=== PATIENT | female | born 1970 | race Caucasian/White ===

== ENCOUNTER 2020-05-21 15:54 | Emergency (ER) | payer MEDICARE, MEDICAID ==
--- NOTE | 2020-05-21 16:44 | EDM.PDOC ---
ED HPI GENERAL MEDICAL PROBLEM - General Chief Complaint: General Stated Complaint: DEHYDRATION, CANCER PATIENT Time Seen by Provider: 05/21/20 16:19 Source of Information: Reports: Patient History Limitations: Reports: No Limitations - History of Present Illness INITIAL COMMENTS - FREE TEXT/NARRATIVE: Pt has multiorgan cancer and is followed in [facility] by several medical team members including oncologists. Seen usually once a week. She presents here mainly for concern of possibly being dehydrated. States she has not been drinking as much fluid as normal as of late and is feeling thirsty but has discomfort with swallowing and eating. Thinks she has lost 7 or 8 lbs since last week. Denies fevers,cough,chest pains or dyspnea. Primary reason for visit here is to check on her hydration status due to her feeling so thirsty. Onset: Gradual Improves with: Reports: Rest Worsens with: Reports: Movement Associated Symptoms: Reports: Loss of Appetite, Malaise, Weakness. Denies: Chest Pain, Cough, Fever/Chills, Headaches, Shortness of Breath - Related Data Allergies Allergy/AdvReac Type Severity Reaction Status Date / Time vancomycin Allergy Hives Verified 05/21/20 16:22 Home Meds: Home Meds Anastrozole [Arimidex] 1 mg PO DAILY 05/21/20 [History] Apixaban [Eliquis] 5 mg PO BID 05/21/20 [History] Cetirizine [ZyrTEC] 10 mg PO DAILY 05/21/20 [History] Cholecalciferol (Vitamin D3) [D3 Dots] 50 mcg PO DAILY 05/21/20 [History] Cyclobenzaprine HCl 10 mg PO DAILY 05/21/20 [History] Diphenhyd/Lidocaine/Nystatin [First-Bxn Mouthwash] 237 ml MM TID PRN 05/21/20 [History] FLUoxetine HCl [Fluoxetine HCl] 80 mg PO DAILY 05/21/20 [History] Gabapentin [Neurontin] 200 mg PO DAILY 05/21/20 [History] LORazepam [Lorazepam] 2 mg PO DAILY 05/21/20 [History] Levothyroxine Sodium [Euthyrox] 50 mcg PO DAILY 05/21/20 [History] Mirtazapine 7.5 mg pe PO DAILY 05/21/20 [History] OLANZapine [ZyPREXA] 10 mg PO DAILY 09/15/20 [History] Omeprazole 20 mg PO DAILY 05/21/20 [History] Oxybutynin [Oxybutynin ER] 10 mg PO DAILY 05/21/20 [History] Prazosin HCl [Prazosin] 3 mg PO DAILY 05/21/20 [History] Prochlorperazine Maleate [Compazine] 10 mg PO Q12HR PRN 05/21/20 [History] amLODIPine [Norvasc] 5 mg PO DAILY 05/21/20 [History] buPROPion HCL [Wellbutrin Xl] 150 mg PO DAILY 05/21/20 [History] hydrOXYzine HCL [Hydroxyzine HCl] 100 mg PO DAILY 05/21/20 [History] Social & Family History - Tobacco Use Smoking Status *Q: Never Smoker Second Hand Smoke Exposure: No - Caffeine Use Caffeine Use: Reports: None - Recreational Drug Use Recreational Drug Use: No ED ROS GENERAL - Review of Systems Review Of Systems: See Below Constitutional: Reports: Malaise, Weakness, Decreased Appetite, Weight Loss. Denies: Night Sweats, Diaphoresis HEENT: Reports: No Symptoms Respiratory: Denies: Shortness of Breath, Wheezing, Pleuritic Chest Pain Cardiovascular: Denies: Chest Pain, Blood Pressure Problem Endocrine: Reports: Fatigue GI/Abdominal: Denies: Abdominal Pain, Constipation, Diarrhea : Denies: Dysuria, Frequency Skin: Reports: No Symptoms Neurological: Reports: No Symptoms Psychiatric: Reports: Depression ED EXAM, GENERAL - Physical Exam Exam: See Below Exam Limited By: No Limitations General Appearance: Alert, WD/WN, No Apparent Distress Ears: Normal External Exam, Normal Canal, Hearing Grossly Normal, Normal TMs Nose: Normal Inspection, Normal Mucosa, No Blood Throat/Mouth: Normal Inspection, Normal Lips, Normal Teeth, Normal Gums, Normal Oropharynx, Normal Voice, No Airway Compromise Head: Atraumatic, Normocephalic Neck: Normal Inspection, Supple, Non-Tender, Full Range of Motion Respiratory/Chest: No Respiratory Distress, Lungs Clear, Normal Breath Sounds Cardiovascular: Normal Peripheral Pulses, Regular Rate, Rhythm, No Edema GI/Abdominal: Normal Bowel Sounds, Other (colostomy). No: Non-Tender, Distended Course - Vital Signs Last Recorded V/S: Last Vital Signs Temp 97 F 05/21/20 16:22 Pulse 93 05/21/20 16:22 Resp 18 05/21/20 16:22 BP 139/91 H 05/21/20 16:22 Pulse Ox 94 L 05/21/20 16:22 - Orders/Labs/Meds Orders: Active Orders 24 hr Category Date Time Status COMPREHENSIVE METABOLIC PN,CMP [CHEM] Stat Lab 05/21/20 16:36 Ordered Sodium Chloride 0.9% [Normal Saline] 1,000 ml Med 05/21/20 16:45 Active IV ASDIRECTED Medication Orders Sodium Chloride (Normal Saline) 1,000 mls @ 999 mls/hr IV ASDIRECTED SALENA Last Admin: 05/21/20 17:09 Dose: 999 mls/hr Documented by: MATT Labs: Laboratory Tests 05/21/20 05/21/20 Range/Units 16:36 16:37 WBC 9.0 D (4.0-11.0) K/uL RBC 5.44 (3.80-5.80) M/uL Hgb 13.9 (11.5-16.5) g/dL Hct 42.8 D (37.0-47.0) % MCV 79 (76-96) fL MCH 25.6 L (27.0-32.0) pg MCHC 32.5 (31.0-35.0) g/dL RDW 17.6 H (11.0-16.0) % Plt Count 210 (150-500) K/uL MPV 9.0 (6.0-10.0) fL Neut % (Auto) 56.3 (45.0-70.0) % Lymph % (Auto) 30.8 (20.0-40.0) % [place] % (Auto) 10.1 H (3.0-10.0) % Eos % (Auto) 2.8 (1.0-5.0) % Baso % (Auto) 0.0 (0.0-0.5) % Neut # (Auto) 5.08 (2.00-7.50) K/uL Lymph # (Auto) 2.78 (1.50-4.00) K/uL [place] # (Auto) 0.91 H (0.20-0.80) K/uL Eos # (Auto) 0.25 (0.04-0.40) K/uL Baso # (Auto) 0.00 L (0.02-0.10) K/uL Urine Color Yellow Urine Appearance Cloudy (CLEAR) Urine pH 5.5 (5.0-8.0) Ur Specific [place] >= 1.030 (1.003-1.030) Urine Protein 30 H (NEGATIVE) mg/dL Urine Glucose (UA) Negative (NEGATIVE) mg/dL Urine Ketones Negative (NEGATIVE) mg/dL Urine Occult Blood Large H (NEGATIVE) Urine Nitrite Negative (NEGATIVE) Urine Bilirubin Small H (NEGATIVE) Urine Urobilinogen 0.2 (0.2-1.0) E.U./dL Ur Leukocyte Esterase Small H (NEGATIVE) Urine RBC 30-40 H /HPF Urine WBC 40-50 H /HPF Urine WBC Clumps Few /HPF Ur Squamous Epith Cells Moderate /HPF Urine Bacteria Moderate H /HPF Meds: Medications Generic Name Dose Route Start Last Admin Trade Name Freq PRN Reason Stop Dose Admin Sodium Chloride 1,000 mls @ 999 mls/hr 05/21/20 16:45 05/21/20 17:09 Normal Saline IV 999 mls/hr ASDIRECTED SALENA Administration Departure - Departure Time of Disposition: 18:49 Disposition: Home, Self-Care 01 Condition: Good Clinical Impression: UTI, Urinary tract infectious disease - Discharge Information *PRESCRIPTION DRUG MONITORING PROGRAM REVIEWED*: Not Applicable *COPY OF PRESCRIPTION DRUG MONITORING REPORT IN PATIENT ZACH: Not Applicable Instructions: Antibiotic Medicine, Adult Referrals: PCP,None [Primary Care Provider] - Forms: ED Department Discharge Sepsis Event Note (ED) - Evaluation Sepsis Screening Result: No Definite Risk - Focused Exam Vital Signs: Vital Signs Temp Pulse Resp BP Pulse Ox 05/21/20 16:22 97 F 93 18 139/91 H 94 L - My Orders Last 24 Hours: My Active Orders 05/21/20 16:36 COMPREHENSIVE METABOLIC PN,CMP [CHEM] Stat 05/21/20 16:45 Sodium Chloride 0.9% [Normal Saline] 1,000 ml IV ASDIRECTED - Assessment/Plan Last 24 Hours: My Active Orders 05/21/20 16:36 COMPREHENSIVE METABOLIC PN,CMP [CHEM] Stat 05/21/20 16:45 Sodium Chloride 0.9% [Normal Saline] 1,000 ml IV ASDIRECTED
[2020-05-21] MEDS: Sodium Chloride 0.9% 1,000 ML IV SCH ×2 (17:09→19:01)
[2020-05-21] MEDS: cefTRIAXone 1 GM in Sodium Chloride 0.9% 50 ML IV ONE (19:35)
[2020-05-22] MEDS: cefTRIAXone 1 GM Vial ONE (05:41)
== END 2020-05-21 20:15 | disposition home or self-care (01) ==
LOC: LB.ED 15:54
DX: E86.0 Dehydration (principal); N39.0 Urinary tract infection, site not specified; Z88.1 Allergy status to other antibiotic agents; Z79.899 Other long term (current) drug therapy
CPT/HCPCS: 36415; 80053; 81001; 85025; 96365; 99284-25; J0696; J7030; J7050

== ENCOUNTER 2020-05-22 16:06 | Emergency (ER) | payer MEDICARE, MEDICAID ==
[2020-05-22] MEDS ORDERED: Sodium Chloride 0.9% 10 ML Syringe FLUSH PRN (16:32)
[2020-05-22] MEDS ORDERED: Sodium Chloride 0.9% 1,000 ML IV ONE (16:32)
[2020-05-22] MEDS ORDERED: GI Cocktail Oral Solution 30 ML PO ONE (16:34)
--- NOTE | 2020-05-22 17:00 | EDM.PDOC ---
ED HPI GENERAL MEDICAL PROBLEM - General Chief Complaint: Gastrointestinal Problem Stated Complaint: VOMITING Time Seen by Provider: 05/22/20 17:00 Source of Information: Reports: Patient, Family History Limitations: Reports: No Limitations - History of Present Illness INITIAL COMMENTS - FREE TEXT/NARRATIVE: Pt with h/o of metastatic colon cancer, mets to lung, liver and peritoneum. Pt was seen our ER last night for dehydration and UTI. She was given 2 liters of fluid, 1gm of Rocephin and a Rx for Bactrim. States that she began vomiting again this morning and once this afternoon and called her [place] doctor who advised her to return to ER for reevaluation and determination as to whether or not she might need transfer to her cancer team at [facility]. Onset Date: 05/19/20 Duration: Waxing/Waning Quality: Reports: Ache, Same as Previous Episode Severity: Mild Improves with: Reports: Rest Lower Back Pain Score (Numeric/FACES): 3 - Related Data Allergies Allergy/AdvReac Type Severity Reaction Status Date / Time vancomycin Allergy Hives Verified 05/21/20 16:22 Home Meds: Home Meds Anastrozole [Arimidex] 1 mg PO DAILY 05/21/20 [History] Apixaban [Eliquis] 5 mg PO BID 05/21/20 [History] Cetirizine [ZyrTEC] 10 mg PO DAILY 05/21/20 [History] Cholecalciferol (Vitamin D3) [D3 Dots] 50 mcg PO DAILY 05/21/20 [History] Cyclobenzaprine HCl 10 mg PO DAILY 05/21/20 [History] Diphenhyd/Lidocaine/Nystatin [First-Bxn Mouthwash] 237 ml MM TID PRN 05/21/20 [History] FLUoxetine HCl [Fluoxetine HCl] 80 mg PO DAILY 05/21/20 [History] Gabapentin [Neurontin] 200 mg PO DAILY 05/21/20 [History] LORazepam [Lorazepam] 2 mg PO DAILY 05/21/20 [History] Levothyroxine Sodium [Euthyrox] 50 mcg PO DAILY 05/21/20 [History] Mirtazapine 7.5 mg pe PO DAILY 05/21/20 [History] OLANZapine [ZyPREXA] 10 mg PO DAILY 05/21/20 [History] Omeprazole 20 mg PO DAILY 05/21/20 [History] Oxybutynin [Oxybutynin ER] 10 mg PO DAILY 05/21/20 [History] Prazosin HCl [Prazosin] 3 mg PO DAILY 05/21/20 [History] Prochlorperazine Maleate [Compazine] 10 mg PO Q12HR PRN 05/21/20 [History] Sulfamethoxazole/Trimethoprim [Bactrim Ds Tablet] 1 each PO BID 10 Days #20 tablet 05/21/20 [Rx] amLODIPine [Norvasc] 5 mg PO DAILY 05/21/20 [History] buPROPion HCL [Wellbutrin Xl] 150 mg PO DAILY 05/21/20 [History] hydrOXYzine HCL [Hydroxyzine HCl] 100 mg PO DAILY 05/21/20 [History] Past Medical History HEENT History: Reports: Allergic Rhinitis Cardiovascular History: Reports: Other (See Below) Other Cardiovascular History: blood clotting disorder Musculoskeletal History: Reports: Other (See Below) Other Musculoskeletal History: shoulder pain Psychiatric History: Reports: Anxiety, Depression Endocrine/Metabolic History: Reports: Hypothyroidism Other Endocrine/Metabolic History: thyroid nodule Oncologic (Cancer) History: Reports: Breast, Colon - Past Surgical History HEENT Surgical History: Reports: Other (See Below) Other HEENT Surgeries/Procedures: sore throat ,dysphagia GI Surgical History: Reports: Colonoscopy, Colostomy, Other (See Below) Other GI Surgeries/Procedures: Colon Cancer Social & Family History - Caffeine Use Caffeine Use: Reports: None ED ROS GENERAL - Review of Systems Review Of Systems: See Below Constitutional: Reports: Weakness, Fatigue. Denies: Fever, Malaise HEENT: Reports: No Symptoms Respiratory: Reports: No Symptoms Cardiovascular: Reports: Other (reflux chest pain from vomiting) GI/Abdominal: Reports: Nausea, Vomiting : Reports: Dysuria, Urgency, Other (enuresis) Musculoskeletal: Reports: No Symptoms Skin: Reports: No Symptoms Neurological: Reports: No Symptoms Psychiatric: Reports: Depression ED EXAM, GI/ABD - Physical Exam Exam: See Below Exam Limited By: No Limitations General Appearance: Alert, WD/WN, No Apparent Distress Ears: Normal External Exam, Normal TMs Throat/Mouth: Normal Inspection, Normal Lips, Normal Teeth, Normal Gums, Normal Oropharynx, Normal Voice Head: Atraumatic Neck: Normal Inspection, Supple Respiratory/Chest: No Respiratory Distress, Lungs Clear Cardiovascular: Normal Peripheral Pulses, Regular Rate, Rhythm GI/Abdominal Exam: Normal Bowel Sounds, Soft, Other (colostomy) Back Exam: Normal Inspection Extremities: Normal Inspection Neurological: Alert, Oriented, CN II-XII Intact, Normal Cognition Psychiatric: Depressed Mood Skin Exam: Warm, Dry, Intact Course - Vital Signs Last Recorded V/S: Last Vital Signs Temp 97.6 F 05/22/20 18:26 Pulse 79 05/22/20 18:26 Resp 18 05/22/20 18:26 BP 123/71 05/22/20 18:26 Pulse Ox 95 05/22/20 18:26 - Orders/Labs/Meds Orders: Active Orders 24 hr Category Date Time Status Sodium Chloride 0.9% [Saline Flush] Med 05/22/20 16:32 Active 10 ml FLUSH ASDIRECTED PRN cefTRIAXone [Rocephin] 1 gm Med 05/22/20 18:00 Active Sodium Chloride 0.9% [Normal Saline] 50 ml IV Q24H Peripheral IV Insertion Adult [OM.PC] Routine Oth 05/22/20 16:32 Ordered Medication Orders Ceftriaxone Sodium 1 gm/ (Sodium Chloride) 50 mls @ 200 mls/hr IV Q24H [facility] Last Admin: 05/22/20 18:33 Dose: Not Given Documented by: Admin: 05/22/20 17:48 Dose: 200 mls/hr Documented by: MONIKA Sodium Chloride (Saline Flush) 10 ml FLUSH ASDIRECTED PRN PRN Reason: Keep Vein Open Labs: Laboratory Tests 05/22/20 05/22/20 Range/Units 16:53 16:55 WBC 7.0 D (4.0-11.0) K/uL RBC 5.03 (3.80-5.80) M/uL Hgb 12.8 (11.5-16.5) g/dL Hct 39.5 (37.0-47.0) % MCV 79 (76-96) fL MCH 25.4 L (27.0-32.0) pg MCHC 32.4 (31.0-35.0) g/dL RDW 17.2 H (11.0-16.0) % Plt Count 174 (150-500) K/uL MPV 8.7 (6.0-10.0) fL Neut % (Auto) 58.9 (45.0-70.0) % Lymph % (Auto) 26.8 (20.0-40.0) % [place] % (Auto) 11.8 H (3.0-10.0) % Eos % (Auto) 2.4 (1.0-5.0) % Baso % (Auto) 0.1 (0.0-0.5) % Neut # (Auto) 4.12 (2.00-7.50) K/uL Lymph # (Auto) 1.88 (1.50-4.00) K/uL [place] # (Auto) 0.83 H (0.20-0.80) K/uL Eos # (Auto) 0.17 (0.04-0.40) K/uL Baso # (Auto) 0.01 L (0.02-0.10) K/uL Sodium 135 L (136-145) mmol/L Potassium 3.9 (3.5-5.1) mmol/L Chloride 101 (98-107) mmol/L Carbon Dioxide 24.0 (21.0-32.0) mmol/L Anion Gap 13.9 (5.0-15.0) mmol/L BUN 10 D (8-26) mg/dL Creatinine 0.86 D (0.55-1.02) mg/dL Est Cr Clr Drug Dosing TNP Estimated GFR (MDRD) > 60 (>60) MLS/MIN BUN/Creatinine Ratio 11.6 (6-25) Glucose 105 H (74-100) mg/dL Calcium 8.8 (8.5-10.1) mg/dL Total Bilirubin 0.4 (0.0-1.0) mg/dL AST 78 H (15-37) U/L ALT 27 (12-78) U/L Alkaline Phosphatase 246 H (46-116) U/L Total Protein 7.9 (6.4-8.2) g/dL Albumin 2.5 L (3.4-5.0) g/dL Globulin 5.4 H (2.2-4.2) g/dL Albumin/Globulin Ratio 0.5 L (0.8-2.0) Meds: Medications Generic Name Dose Route Start Last Admin Trade Name Freq PRN Reason Stop Dose Admin Ceftriaxone Sodium 1 gm/ 50 mls @ 200 mls/hr 05/22/20 18:00 05/22/20 18:33 Sodium Chloride IV Not Given Q24H SALENA Sodium Chloride 10 ml 05/22/20 16:32 Saline Flush FLUSH ASDIRECTED PRN Keep Vein Open Discontinued Medications Generic Name Dose Route Start Last Admin Trade Name Peterq PRN Reason Stop Dose Admin Al Hydroxide/Mg Hydroxide 30 ml 05/22/20 16:34 05/22/20 17:24 Gi Cocktail PO 05/22/20 16:35 30 ml ONETIME ONE Administration Sodium Chloride 1,000 mls @ 1,000 mls/hr 05/22/20 16:32 05/22/20 17:25 Normal Saline IV 05/22/20 17:31 1,000 mls/hr .BOLUS ONE Infusion Ondansetron HCl 4 mg 05/22/20 17:35 05/22/20 17:49 Zofran IVPUSH 05/22/20 17:36 4 mg ONETIME ONE Administration - Re-Assessments/Exams Free Text/Narrative Re-Assessment/Exam: 05/22/20 17:34 Pt had cbc and chem ordered. Also given another bolus of IVF Given a gm of Rocephin and advised to restart her Bactrim tomorrow evening. Call your primary oncologist if not improving. May need to go to [facility] where your oncologist team will be able to manage. Departure - Departure Time of Disposition: 19:00 Disposition: Home, Self-Care 01 Clinical Impression: UTI (urinary tract infection), Vomiting, UTI, Urinary tract infectious disease - Discharge Information *PRESCRIPTION DRUG MONITORING PROGRAM REVIEWED*: No *COPY OF PRESCRIPTION DRUG MONITORING REPORT IN PATIENT ZACH: No Instructions: Nausea and Vomiting, Adult, [id number], Urinary Tract Infection, Adult, [id number] Referrals: PCP,None [Primary Care Provider] - Forms: ED Department Discharge Sepsis Event Note (ED) - Focused Exam Vital Signs: Vital Signs Temp Pulse Resp BP Pulse Ox 05/22/20 18:26 97.6 F 79 18 123/71 95 - My Orders Last 24 Hours: My Active Orders 05/22/20 16:32 Sodium Chloride 0.9% [Saline Flush] 10 ml FLUSH ASDIRECTED PRN Peripheral IV Insertion Adult [OM.PC] Routine 05/22/20 18:00 cefTRIAXone [Rocephin] 1 gm Sodium Chloride 0.9% [Normal Saline] 50 ml IV Q24H - Assessment/Plan Last 24 Hours: My Active Orders 05/22/20 16:32 Sodium Chloride 0.9% [Saline Flush] 10 ml FLUSH ASDIRECTED PRN Peripheral IV Insertion Adult [OM.PC] Routine 05/22/20 18:00 cefTRIAXone [Rocephin] 1 gm Sodium Chloride 0.9% [Normal Saline] 50 ml IV Q24H
[2020-05-22] MEDS ORDERED: Ondansetron 4 MG/2 ML SDV IVPUSH ONE (17:35)
[2020-05-22] MEDS: cefTRIAXone 1 GM in Sodium Chloride 0.9% 50 ML IV SCH ×2 (17:48→18:33)
== END 2020-05-22 19:15 | disposition home or self-care (01) ==
LOC: LB.ED 16:06
DX: N39.0 Urinary tract infection, site not specified (principal); R11.10 Vomiting, unspecified; E03.9 Hypothyroidism, unspecified; F41.9 Anxiety disorder, unspecified; F32.9 Major depressive disorder, single episode, unspecified; Z79.899 Other long term (current) drug therapy; Z88.1 Allergy status to other antibiotic agents
CPT/HCPCS: 36415; 80053; 85025; 96365; 96375; 99283; A9270; J0696; J2405; J7030; J7050

== ENCOUNTER 2020-06-11 09:12 | Emergency (ER) | payer MEDICARE, MEDICAID ==
--- NOTE | 2020-06-11 09:55 | EDM.PDOC ---
ED HPI GENERAL MEDICAL PROBLEM - General Chief Complaint: General Stated Complaint: VAGINAL BLEEDING PER [facility] DOCTOR Time Seen by Provider: 06/11/20 09:30 Source of Information: Reports: Patient, Family History Limitations: Reports: No Limitations - History of Present Illness INITIAL COMMENTS - FREE TEXT/NARRATIVE: Patient is a 50 y/o female who presents for hematuria that started last night. Mother is with patient and states she is not acting herself and is more tired and with loss of appetite. Patient sees [facility] for her stage 4 colon cancer and has ostomy bad. [facility] wanted patient checked out to see if she is safe for transport for her appointment tonight at [address] [place] [address] Patient states she also has mid back pain and some abdominal pain. She denies N/V/D and fever. Generalized Pain Score (Numeric/FACES): 4 - Related Data Allergies Allergy/AdvReac Type Severity Reaction Status Date / Time vancomycin Allergy Hives Verified 05/21/20 16:22 Home Meds: Home Meds Anastrozole [Arimidex] 1 mg PO DAILY 05/21/20 [History] Apixaban [Eliquis] 5 mg PO BID 05/21/20 [History] Cetirizine [ZyrTEC] 10 mg PO DAILY 05/21/20 [History] Cholecalciferol (Vitamin D3) [D3 Dots] 50 mcg PO DAILY 05/21/20 [History] Cyclobenzaprine HCl 10 mg PO DAILY 05/21/20 [History] Diphenhyd/Lidocaine/Nystatin [First-Bxn Mouthwash] 237 ml MM TID PRN 05/21/20 [History] FLUoxetine HCl [Fluoxetine HCl] 80 mg PO DAILY 05/21/20 [History] Gabapentin [Neurontin] 200 mg PO DAILY 05/21/20 [History] LORazepam [Lorazepam] 2 mg PO DAILY 05/21/20 [History] Levothyroxine Sodium [Euthyrox] 50 mcg PO DAILY 05/21/20 [History] Mirtazapine 7.5 mg pe PO DAILY 05/21/20 [History] OLANZapine [ZyPREXA] 10 mg PO DAILY 05/21/20 [History] Omeprazole 20 mg PO DAILY 05/21/20 [History] Oxybutynin [Oxybutynin ER] 10 mg PO DAILY 05/21/20 [History] Prazosin HCl [Prazosin] 3 mg PO DAILY 05/21/20 [History] Prochlorperazine Maleate [Compazine] 10 mg PO Q12HR PRN 05/21/20 [History] Sulfamethoxazole/Trimethoprim [Bactrim Ds Tablet] 1 each PO BID 10 Days #20 tablet 05/21/20 [Rx] amLODIPine [Norvasc] 5 mg PO DAILY 05/21/20 [History] buPROPion HCL [Wellbutrin Xl] 150 mg PO DAILY 05/21/20 [History] hydrOXYzine HCL [Hydroxyzine HCl] 100 mg PO DAILY 05/21/20 [History] Past Medical History HEENT History: Reports: Allergic Rhinitis Cardiovascular History: Reports: Other (See Below) Other Cardiovascular History: blood clotting disorder Musculoskeletal History: Reports: Other (See Below) Other Musculoskeletal History: shoulder pain Psychiatric History: Reports: Anxiety, Depression Endocrine/Metabolic History: Reports: Hypothyroidism Other Endocrine/Metabolic History: thyroid nodule Oncologic (Cancer) History: Reports: Breast, Colon - Past Surgical History HEENT Surgical History: Reports: Other (See Below) Other HEENT Surgeries/Procedures: sore throat ,dysphagia GI Surgical History: Reports: Colonoscopy, Colostomy, Other (See Below) Other GI Surgeries/Procedures: Colon Cancer Social & Family History - Caffeine Use Caffeine Use: Reports: None ED ROS GENERAL - Review of Systems Review Of Systems: See Below Constitutional: Reports: Fatigue, Decreased Appetite HEENT: Reports: No Symptoms Respiratory: Reports: No Symptoms Cardiovascular: Reports: No Symptoms GI/Abdominal: Reports: Abdominal Pain : Reports: Hematuria Skin: Reports: No Symptoms Neurological: Reports: No Symptoms ED EXAM, GENERAL - Physical Exam Exam: See Below Exam Limited By: No Limitations General Appearance: Alert, No Apparent Distress Head: Atraumatic, Normocephalic Neck: Normal Inspection Respiratory/Chest: No Respiratory Distress, Lungs Clear, Normal Breath Sounds, No Accessory Muscle Use, Chest Non-Tender Cardiovascular: Normal Peripheral Pulses, Regular Rate, Rhythm, No Murmur GI/Abdominal: Normal Bowel Sounds, Soft, Non-Tender, No Distention, Other (right sided ostomy bag; no bloody stools; no erythema around ostomy; abdominal hernia that is large and non-tender) Neurological: Alert, Oriented, CN II-XII Intact, No Motor/Sensory Deficits Skin Exam: Warm, Dry, Intact, Normal Color, No Rash Course - Vital Signs Last Recorded V/S: Last Vital Signs Temp 35.8 C L 06/11/20 09:29 Pulse 103 H 06/11/20 09:29 Resp 16 06/11/20 09:29 BP 121/80 06/11/20 09:29 Pulse Ox 98 06/11/20 09:29 - Orders/Labs/Meds Orders: Active Orders 24 hr Category Date Time Status CULTURE URINE [RM] Stat Lab 06/11/20 10:40 Ordered LACTIC ACID [CHEM] Stat Lab 06/11/20 09:45 Received Labs: Laboratory Tests 06/11/20 06/11/20 06/11/20 Range/Units 09:42 09:45 09:45 WBC 12.7 H D (4.0-11.0) K/uL RBC 4.76 (3.80-5.80) M/uL Hgb 12.0 (11.5-16.5) g/dL Hct 37.4 (37.0-47.0) % MCV 79 (76-96) fL MCH 25.2 L (27.0-32.0) pg MCHC 32.1 (31.0-35.0) g/dL RDW 18.7 H (11.0-16.0) % Plt Count 311 D (150-500) K/uL MPV 8.9 (6.0-10.0) fL Neut % (Auto) 64.2 (45.0-70.0) % Lymph % (Auto) 18.4 L (20.0-40.0) % [place] % (Auto) 16.6 H (3.0-10.0) % Eos % (Auto) 0.7 L (1.0-5.0) % Baso % (Auto) 0.1 (0.0-0.5) % Neut # (Auto) 8.14 H (2.00-7.50) K/uL Lymph # (Auto) 2.33 (1.50-4.00) K/uL [place] # (Auto) 2.11 H (0.20-0.80) K/uL Eos # (Auto) 0.09 (0.04-0.40) K/uL Baso # (Auto) 0.01 L (0.02-0.10) K/uL Sodium 133 L (136-145) mmol/L Potassium 3.7 (3.5-5.1) mmol/L Chloride 94 L (98-107) mmol/L Carbon Dioxide 26.5 (21.0-32.0) mmol/L Anion Gap 16.2 H (5.0-15.0) mmol/L BUN 8 (8-26) mg/dL Creatinine 1.09 H D (0.55-1.02) mg/dL Est Cr Clr Drug Dosing 53.91 mL/min Estimated GFR (MDRD) 53 L (>60) MLS/MIN BUN/Creatinine Ratio 7.3 (6-25) Glucose 131 H (74-100) mg/dL Calcium 9.2 (8.5-10.1) mg/dL Total Bilirubin 0.7 D (0.0-1.0) mg/dL AST 168 H (15-37) U/L ALT 51 (12-78) U/L Alkaline Phosphatase 560 H (46-116) U/L Total Protein 8.3 H (6.4-8.2) g/dL Albumin 2.5 L (3.4-5.0) g/dL Globulin 5.8 H (2.2-4.2) g/dL Albumin/Globulin Ratio 0.4 L (0.8-2.0) Amylase 17 L (25-115) U/L Lipase 132 (73-393) U/L Urine Color Red Urine Appearance Cloudy (CLEAR) Urine pH 7.0 (5.0-8.0) Ur Specific [place] >= 1.030 (1.003-1.030) Urine Protein >=300 H (NEGATIVE) mg/dL Urine Glucose (UA) Negative (NEGATIVE) mg/dL Urine Ketones Negative (NEGATIVE) mg/dL Urine Occult Blood Large H (NEGATIVE) Urine Nitrite Negative (NEGATIVE) Urine Bilirubin Small H (NEGATIVE) Urine Urobilinogen 1.0 (0.2-1.0) E.U./dL Ur Leukocyte Esterase Large H (NEGATIVE) Urine RBC >100 H /HPF Urine WBC 0-5 H /HPF Ur Squamous Epith Cells Occasional /HPF Urine Bacteria Few /HPF Departure - Departure Time of Disposition: 10:45 Disposition: Home, Self-Care 01 Condition: Good Clinical Impression: UTI (urinary tract infection) Qualifiers: Urinary tract infection type: acute cystitis Hematuria presence: with hematuria Qualified Code(s): N30.01 - Acute cystitis with hematuria - Discharge Information *PRESCRIPTION DRUG MONITORING PROGRAM REVIEWED*: Not Applicable *COPY OF PRESCRIPTION DRUG MONITORING REPORT IN PATIENT ZACH: Not Applicable Referrals: PCP,None [Primary Care Provider] - Forms: ED Department Discharge Sepsis Event Note (ED) - Focused Exam Vital Signs: Vital Signs Temp Pulse Resp BP Pulse Ox 06/11/20 09:29 35.8 C L 103 H 16 121/80 98 - My Orders Last 24 Hours: My Active Orders 06/11/20 09:45 LACTIC ACID [CHEM] Stat 06/11/20 10:40 CULTURE URINE [RM] Stat - Assessment/Plan Last 24 Hours: My Active Orders 06/11/20 09:45 LACTIC ACID [CHEM] Stat 06/11/20 10:40 CULTURE URINE [RM] Stat Plan: Discussed with Dr. Ng's nurse and feel patient is safe for discharge. Will prescribe Augmentin for UTI BID x 10 days with food. Urine culture pending. All other labs are unremarkable. Follow up as scheduled with Oncology tonight.
[2020-06-11] MEDS ORDERED: Phenazopyridine 100 MG Tab ONE (10:50)
[2020-06-11] MEDS ORDERED: Amoxicillin/Clavulanate K 875-125 MG Tab ONE (10:50)
== END 2020-06-11 10:52 | disposition home or self-care (01) ==
LOC: LB.ED 09:12
DX: N30.01 Acute cystitis with hematuria (principal); F41.9 Anxiety disorder, unspecified; F32.9 Major depressive disorder, single episode, unspecified; E03.9 Hypothyroidism, unspecified; Z88.1 Allergy status to other antibiotic agents; Z79.899 Other long term (current) drug therapy; Z79.01 Long term (current) use of anticoagulants
CPT/HCPCS: 36415; 80053; 81001; 82150; 83605; 83690; 85025; 87086; 99284; A9270; 99283